=== PATIENT | female | born 1965 | race African-American/Black ===

== ENCOUNTER 2019-04-01 21:04 | Emergency (ER) | payer BC ==
[2019-04-01] MEDS ORDERED: Ondansetron ODT 4 MG TAB ONE (21:27)
== END 2019-04-01 21:56 | disposition home or self-care (01) ==
LOC: ERS 21:04
DX: J11.1 Influenza due to unidentified influenza virus with other respiratory manifestations (principal); I10 Essential (primary) hypertension; E78.5 Hyperlipidemia, unspecified
CPT/HCPCS: 99282; Q0162